=== PATIENT | male | born 1995 | race Caucasian/White ===

== ENCOUNTER 2021-03-04 17:32 | Emergency (ER) | payer MEDICAID, SELFPAY ==
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
[2021-03-04 17:54] VITALS: BP 167/77; PULSE 78; RESP 16; TEMP 37.1; O2SAT 98; BMI 30.2
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
== END 2021-03-04 19:45 | disposition home or self-care (01) ==
PROVIDERS: Emergency Provider Internal Medicine
DX: M54.2 Cervicalgia (principal); M62.838 Other muscle spasm; Z79.899 Other long term (current) drug therapy
CPT/HCPCS: 72040; 99283

== ENCOUNTER 2021-04-03 16:26 | Emergency (ER) | payer MEDICAID, SELFPAY ==
--- NOTE | 2021-04-03 | ECG_ITS ---
Test Reason : CP Blood Pressure : / mmHG Vent. Rate : 083 BPM Atrial Rate : 083 BPM P-R Int : 148 ms QRS Dur : 088 ms QT Int : 342 ms P-R-T Axes : 048 054 044 degrees QTc Int : 401 ms Normal sinus rhythm Normal ECG No previous ECGs available Referred By: Generic ED Physician Electronically Signed By:MARSHALL BARRERA
--- NOTE | ~2021-04-03 | XR_ITS ---
EXAMINATION: XR CHEST CLINICAL INFORMATION: Chest pain COMPARISON: None TECHNIQUE: Frontal view of the chest was obtained. FINDINGS: The lungs are well expanded. There is no focal consolidation, edema, or effusion. No pneumothorax. The cardiomediastinal silhouette is within normal limits. No acute osseous abnormality. XR/XR chest 1V IMPRESSION: Clear lungs.
[2021-04-03 16:54] VITALS: BP 139/77; PULSE 90; RESP 18; TEMP 36.9; O2SAT 97; BMI 30.8
--- NOTE | 2021-04-03 17:41 | ED_ITS ---
HPI - Chest Pain General Chief Complaint: Chest Pain Stated Complaint: nausea, chest pain Time Seen by Provider: 04/03/21 17:41 Source: patient Mode of arrival: ambulatory Limitations: no limitations History of Present Illness HPI narrative: 25 y/o male presenting with intermittent chest pains and palpitations over the last few months. The pains are sharp stabbing pains that last a few seconds to a minute. They are located in the epigastric area and left chest at times. They happen when he is sitting still and are worse with palpation. He reports intermittent palpitations at night when he is trying to sleep. He admits to being anxious. He denies SOB. MD complaint: chest pain Onset (ago): week(s) Timing of current episode: episodic Prior episodes: Yes Onset: during rest Pain location: left chest and epigastric Pain radiation: none Severity: moderate Pain scale (0-10): 5 Quality: sharp Relieving factors: nothing Exacerbating factors: palpation Associated symptoms: palpitations Treatment prior to arrival: none Risk Factors Coronary artery disease risk factors: none Thoracic aortic dissection risk factors: none Related Data Previous Rx's Medication Instructions Recorded cyclobenzaprine 10 mg PO TID PRN #10 tab 03/04/21 ibuprofen 600 mg PO Q8H PRN #10 tab 03/04/21 ibuprofen 600 mg PO Q8H PRN #15 tab 04/03/21 Allergies Allergy/AdvReac Type Severity Reaction Status Date / Time No Known Allergies Allergy Verified 04/03/21 16:53 Review of Systems Review of Systems: Constitutional: No Fever, No Chills ENT/Mouth: No sore throat, No Rhinorrhea, No Swallowing Difficulty Eyes: No Eye Pain, No Swelling, No Redness Cardiovascular: + Chest Pain, No SOB, No Orthopnea, No Edema Respiratory: No Cough, No Sputum, No Wheezing, No dyspnea Gastrointestinal: No Nausea, No Vomiting, No Diarrhea, No abdominal Pain Genitourinary: No Dysuria, No Urinary Frequency, No Hematuria Musculoskeletal: No joint pain, No Myalgias Skin: No Skin Lesions, No rash Neuro: No Weakness, No Numbness, No Dizziness, No Headache Psych: + Anxiety/Panic, No Depression Heme/Lymph: No Bruising, + Lymphadenopathy (right post auricular) Endocrine: No Polyuria, No Polydipsia PMFSH Past Medical History Attestation statement: The following information was validated with the patient. Medical History No active medical problems Social History Social History Alcohol intake: never Smoked in Last 30 Days: No Use of substances other than those prescribed or required for medical reasons: No Advance Directives: No Advance Directives Information Provided: No Physical Exam Vital Signs: Vital Signs: Last Vital Signs Temp 98.5 F 04/03/21 16:54 Pulse 90 04/03/21 16:54 Resp 18 04/03/21 16:54 BP 139/77 04/03/21 16:54 Pulse Ox 97 04/03/21 16:54 Body Mass Index 30.8 Appearance: Alert. Oriented X3. No acute distress. Eyes: Pupils equal, round and reactive to light. ENT: Pharynx normal. Neck: Normal inspection. Neck supple. CVS: Normal heart rate and rhythm. Pulses normal. Respiratory: No respiratory distress. Breath sounds normal. Mild anterior chest wall tenderness is subxiphoid area, no crepitus Abdomen: Soft and nontender. +BS x4 Skin: Skin warm and dry. Normal skin color. Normal skin turgor. No rashes. Extremities: No lower extremity edema. Neuro: Oriented X 3. No motor deficit. No sensory deficit. Course Course Course Narrative: 25 y/o male presenting with intermittent reproducible chest pain, palpitations in the setting of increased anxiety. VS and exam are unremar kable, chest pain is reproducible in the subxiphoid area. CXR, EKG and labs ordered. Reevaluation(s) Reevaluation #1: EKG normal. CXR normal. Lab workup is unremarkable. He ist stable for discharge home with outpatient follow up. NSAID PRN for pain and f/u PCP for management of anxiety. Patient and mom agree with plan. MDM - Chest Pain Medical Records Data Attestation: I reviewed the patient's medical records. Lab Data Attestation: I reviewed the patient's lab results. Result diagrams: 04/03/21 17:58 04/03/21 17:58 Labs: Lab Results 04/03/21 04/03/21 04/03/21 Range/Units 17:58 17:58 17:58 WBC 10.4 (4.8-10.8) X10*3/uL RBC 5.08 (4.60-5.80) X10*6/uL Hgb 14.2 (14.0-18.0) g/dl Hct 43.3 (42-52) % MCV 85.2 (80-98) fL MCH 28.0 (27.0-33.0) pg MCHC 32.8 (31.0-36.0) g/dl RDW 12.7 (11.0-16.0) % Plt Count 298 (160-400) X10*3/uL MPV 9.0 L (9.4-12.4) fL Immature Gran % (Auto) 0.4 (0.0-0.4) % Neut % (Auto) 59.0 (45-73) % Lymph % (Auto) 33.2 (20-40) % [place] % (Auto) 6.6 (2-11) % Eos % (Auto) 0.5 (0-4) % Baso % (Auto) 0.3 (0-2) % Lymph # (Auto) 3.5 (1.2-4.9) X10*3/uL [place] # (Auto) 0.7 (0.1-1.2) X10*3/uL Eos # (Auto) 0.1 (0.0-0.4) X10*3/uL Baso # (Auto) 0.0 (0.0-0.2) X10*3/uL Abs Immat Gran (auto) 0.04 H (0.00-0.03) X10*3/uL Absolute Neuts (auto) 6.2 (2.0-8.3) X10*3/uL Absolute Nucleated RBC 0.000 (0.0-0.012) X10*3/uL Nucleated RBC % (auto) 0.0 (0.0-0.2) /100WBC Sodium 141 (135-145) mmol/L Potassium 4.1 (3.3-5.1) mmol/L Chloride 106 (96-108) mmol/L Carbon Dioxide 27 (22-29) mmol/L Anion Gap 12 (12-20) BUN 11 (9-16) mg/dL Creatinine 1.06 (0.5-1.4) mg/dL Estim Creat Clear Calc 122.0 Estimated GFR > 60 Random Glucose 98 (60-115) mg/dL Calcium 9.6 (8.4-10.2) mg/dL Magnesium 2.1 (1.6-2.6) mg/dL Total Bilirubin 0.4 (0.0-1.0) mg/dL Direct Bilirubin 0.2 (0.0-0.5) mg/dL AST 30 (5-37) U/L ALT 61 H (0-40) U/L Alkaline Phosphatase 92 (39-117) U/L Troponin I High Sens < 3.5 (<3.5-35.0) ng/L Total Protein 8.1 H (6.5-8.0) g/dL Albumin 4.6 (3.5-5.0) g/dL TSH 1.13 (0.32-4.0) uIU/mL ECG Data ECG #1: Attestation: I personally reviewed and interpreted this ECG as follows: ECG interpretation date: 04/03/21 ECG interpretation time: 19:18 Interpretation: normal sinus rhythm, 83 bpm, normal AR interval, normal QTc, no ST segment elevations or depressions. Scores Heart Score History: -0- slightly suspicious ECG: -0- normal Age: -0- < or = 45 Risk factory: -0- no risk factors known Troponin: -0- < or = normal limit Score: 0 Risk: 1.7% Critical Care Time Critical Care Time Critical Care Time: No Discharge Plan Discharge Clinical Impression: Atypical chest pain, Anxiety Patient Disposition: Home, Self-Care Instructions: Costochondritis (ED), Anxiety (ED) Additional Instructions: Your workup today was unremarkable. Your pains and palpitations are most likely due to combination of anxiety and muscle pain. Recommend rest. No heavy lifting. Recommend prescribed Ibuprofen as directed as needed for pain. Follow up with your doctor this week. If you develop new or worsening symptoms call 911 or come back to the ER for further evaluation. Prescriptions: New ibuprofen 600 mg tablet 600 mg PO Q8H PRN (Reason: pain) Qty: 15 RF: 0 No Action ibuprofen 600 mg tablet 600 mg PO Q8H PRN (Reason: pain) Qty: 10 RF: 0 cyclobenzaprine 10 mg tablet 10 mg PO TID PRN (Reason: muscle spasm) Qty: 10 RF: 0 Referrals: [place],[facility] [Primary Care Provider] - 2 days
[2021-04-03 18:02] LABS: MANUAL DIFF FLAG NO
[2021-04-03 18:18] LABS: Basophils Percent Auto 0.3 % (0-2); Eosinophils Absolute Auto 0.1 X10*3/uL (0.0-0.4); Eosinophils Percent Auto 0.5 % (0-4); Hematocrit 43.3 % (42-52); Hemoglobin 14.2 g/dl (14.0-18.0); Imm Gran Abs Auto 0.04 X10*3/uL (0.00-0.03); Imm Gran Pct Auto 0.4 % (0.0-0.4); Lymphocytes Absolute Auto 3.5 X10*3/uL (1.2-4.9); Lymphocytes Percent Auto 33.2 % (20-40); Mean Corpuscular HGB Conc 32.8 g/dl (31.0-36.0); Mean Corpuscular Volume 85.2 fL (80-98); Monocytes Absolute Auto 0.7 X10*3/uL (0.1-1.2); Monocytes Percent Auto 6.6 % (2-11); Neutrophils Absolute Auto 6.2 X10*3/uL (2.0-8.3); Platelet Count 298 X10*3/uL (160-400); Red Blood Count 5.08 X10*6/uL (4.60-5.80); Red Cell Distribution Width 12.7 % (11.0-16.0); White Blood Count 10.4 X10*3/uL (4.8-10.8)
[2021-04-03 18:29] LABS: Alanine Aminotransferase 61 U/L (0-40); Albumin Level 4.6 g/dL (3.5-5.0); Alkaline Phosphatase 92 U/L (39-117); Anion Gap 12 (12-20); Aspartate Amino Transferase 30 U/L (5-37); Bilirubin Direct 0.2 mg/dL (0.0-0.5); Bilirubin Total 0.4 mg/dL (0.0-1.0); Blood Urea Nitrogen 11 mg/dL (9-16); Calcium 9.6 mg/dL (8.4-10.2); Carbon Dioxide 27 mmol/L (22-29); Chloride 106 mmol/L (96-108); Estimated Glomerular Filt Rate > 60; Glucose Random 98 mg/dL (60-115); Magnesium 2.1 mg/dL (1.6-2.6); Potassium 4.1 mmol/L (3.3-5.1); Sodium 141 mmol/L (135-145); Total Protein 8.1 g/dL (6.5-8.0)
[2021-04-03 18:31] LABS: Troponin-I High Sensitivity < 3.5 ng/L (<3.5-35.0)
[2021-04-03 18:54] LABS: TSH reflex Free T4 1.13 uIU/mL (0.32-4.0)
[2021-04-03 19:18] VITALS: BP 126/70; PULSE 78; RESP 20; O2SAT 99
== END 2021-04-03 19:28 | disposition home or self-care (01) ==
PROVIDERS: Physician Assistant; Emergency Provider Emergency Medicine
DX: R07.89 Other chest pain (principal); F41.9 Anxiety disorder, unspecified
CPT/HCPCS: 36415; 71045; 80048; 80076; 83735; 84443; 84484; 85025; 93005; 99283; 99284

== ENCOUNTER 2021-09-27 08:18 | Emergency (ER) | payer MEDICAID, SELFPAY ==
--- NOTE | 2021-09-27 08:42 | ED.GENADULT ---
HPI - General Adult General Chief complaint: Weakness Stated complaint: Nausea/ear ringing/vomiting Time Seen by Provider: 09/27/21 08:29 Source: patient Mode of arrival: ambulatory Limitations: no limitations History of Present Illness HPI narrative: vaccinated x 1 with J+J complaint: nausea, doesn't feel well Onset (ago): day(s) (3) Severity: mild Relieving factors: none Exacerbating factors: none Associated symptoms: denies other symptoms Treatments prior to arrival: none Related Data Previous Rx's Medication Instructions Recorded cyclobenzaprine 10 mg tablet 10 mg PO TID PRN #10 tab 03/04/21 ibuprofen 600 mg tablet 600 mg PO Q8H PRN #10 tab 03/04/21 ibuprofen 600 mg tablet 600 mg PO Q8H PRN #15 tab 04/03/21 ondansetron 4 mg disintegrating 4 mg PO Q8H PRN #20 tab 09/27/21 tablet Allergies Allergy/AdvReac Type Severity Reaction Status Date / Time No Known Allergies Allergy Verified 09/27/21 09:23 Review of Systems Review of Systems: Constitutional : no Fever, no Chills, pos fatigue, positive Malaise ENT/Mouth : no sore throat, no runny nose Eyes: No Discharge Cardiovascular : No Chest Pain, No SOB Respiratory : No Cough, No Sputum Gastrointestinal : pos Nausea, No Vomiting, pos Diarrhea Genitourinary : No Dysuria, No Urinary Frequency Musculoskeletal : positive Myalgia Skin : No rash Neuro : No Headache, pos weakness PMFSH Past Medical History Attestation statement: The following information was validated with the patient. Medical History No active medical problems Social History Social History Alcohol intake: never Patient Tobacco Use Status: Never used Tobacco Advance Directives: No Advance Directives Information Provided: Yes Physical Exam Vital Signs: Vital Signs: Last Vital Signs Temp 99.6 F 09/27/21 08:51 Pulse 89 09/27/21 08:51 Resp 18 09/27/21 08:51 BP 129/79 09/27/21 08:51 Pulse Ox 98 09/27/21 08:51 BMI result Body Mass Index 31.1 Appearance: Alert. Oriented X3. No acute distress. Eyes: Pupils equal, round and reactive to light. ENT: Pharynx normal. normal TMs, MM no signs of dehydration Neck: Normal inspection. Neck supple. CVS: Normal heart rate and rhythm. Pulses normal. Respiratory: No respiratory distress. Breath sounds normal. Abdomen: Soft and nontender. Skin: Skin warm and dry. Normal skin color. Normal skin turgor. Extremities: No lower extremity edema. No calf ttp Neuro: Oriented X 3. No motor deficit. No sensory deficit. Course Course Course Narrative: VS stable not toxic can call with result at home Medical Decision Making [facility] Narrative Medical decision making narrative: 25 yo male vaccinated with J+J here with c/o not feeling well and nausea but can eat and drink - at this time not toxic, no signs of dehydration, ODT zofran, abdomen is benign, COVID swab Lab Data Labs: Lab Results 09/27/21 Range/Units 08:57 COVID-19 ([facility]) Negative (Negative) COVID-19 Clin Com See Note Discharge Plan Discharge Clinical Impression: Acute viral syndrome Patient Disposition: Home, Self-Care Instructions: Viral Syndrome (ED) Additional Instructions: return to ED for any worsening symptoms or concerns wear a mask quarantine your initial rapid test was negative for COVID will call you with PCR testing for flu and COVID today with your results Prescriptions: New ondansetron 4 mg tablet,disintegrating 4 mg PO Q8H PRN (Reason: nausea and vomiting) Qty: 20 RF: 0 No Action ibuprofen 600 mg tablet 600 mg PO Q8H PRN (Reason: pain) Qty: 10 RF: 0 cyclobenzaprine 10 mg tablet 10 mg PO TID PRN (Reason: muscle spasm) Qty: 10 RF: 0 ibuprofen 600 mg tablet 600 mg PO Q8H PRN (Reason: pain) Qty: 15 RF: 0
[2021-09-27 08:51] VITALS: BP 129/79; PULSE 89; RESP 18; TEMP 37.6; O2SAT 98; BMI 31.1
[2021-09-27] MEDS: Ondansetron ODT 4 MG TAB.RAPDIS TRANSLINGU (08:56)
--- NOTE | 2021-09-27 08:59 | PC.NURSE ---
Pt received: Pt Aox4 and c/o weakness with nausea and diarrhea for the past week. Heart sounds normal and lungs clear. Pt abd round and nontender.
[2021-09-27 09:25] LABS: COVID-19 Test Negative (Negative); IDNOW Serial# 9DD0AD1C
[2021-09-27 10:20] LABS: Influenza A PCR NEGATIVE (Negative); Influenza B PCR NEGATIVE (Negative); Resp Syncy Virus RNA Qual PCR NEGATIVE (Negative); SARS COV2 PCR INHOUSE NEGATIVE (Negative)
== END 2021-09-27 10:00 | disposition home or self-care (01) ==
PROVIDERS: Emergency Provider Emergency Medicine
DX: B34.9 Viral infection, unspecified (principal); Z20.822 Contact with and (suspected) exposure to COVID-19; R11.0 Nausea
CPT/HCPCS: 0241U; 36415; 87635; 99283

== ENCOUNTER 2021-10-18 09:54 | Outpatient (REF) | payer MEDICAID, SELFPAY ==
[2021-10-18 10:17] LABS: Binax Internal Control QC Valid; Binax Now Covid-19 Ag Negative (Negative)
== END 2021-10-18 09:55 | disposition home or self-care (01) ==
LOC: HO.LAB 09:54
PROVIDERS: Visit Provider Internal Medicine
DX: Z20.822 Contact with and (suspected) exposure to COVID-19 (principal)
CPT/HCPCS: C9803

== ENCOUNTER 2023-03-03 12:30 | Emergency (ER) | payer OTHER, MEDICAID, SELFPAY ==
--- NOTE | 2023-03-03 12:49 | ED_ITS ---
HPI - Extremity Injury (Upper) General Chief Complaint: Wound/Laceration Stated Complaint: l hand laceration at work Time Seen by Provider: 03/03/23 13:35 Source: patient, RN notes reviewed and old records reviewed Mode of arrival: ambulatory History of Present Illness HPI narrative: 27-year-old male with no significant past medical history presents to the ED complaining of laceration to left hand s/p using metal at work around 10:00AM. Tetanus out of date. Denies injury to other area, numbness, tingling, weakness, drainage MD complaint: injury to: left Related Data Previous Rx's Medication Instructions Recorded cyclobenzaprine 10 mg tablet 10 mg PO TID PRN muscle spasm #10 03/04/21 tabs ibuprofen 600 mg tablet 600 mg PO Q8H PRN pain #10 tabs 03/04/21 ibuprofen 600 mg tablet 600 mg PO Q8H PRN pain #15 tabs 04/03/21 ondansetron 4 mg disintegrating 4 mg PO Q8H PRN nausea and 09/27/21 tablet vomiting #20 tabs Allergies Allergy/AdvReac Type Severity Reaction Status Date / Time No Known Allergies Allergy Verified 03/03/23 12:54 Review of Systems Review of Systems: Constitutional: No Fever, No Chills ENT/Mouth: No Ear Pain, No Nasal Congestion, No sore throat, No Rhinorrhea, No Swallowing Difficulty Cardiovascular: No Chest Pain, No SOB Respiratory: No Cough, No Sputum, No Wheezing Gastrointestinal: No Nausea, No Vomiting, No Diarrhea, No Constipation, No Abdominal pain Musculoskeletal: No joint pain, No Myalgias, No Joint Swelling Skin: + Skin Lesions, No rash Neuro: No Weakness, No Numbness, No Paresthesias Yes all other systems are reviewed and are negative Constitutional: Constitutional: Reports as per [facility] Past Medical History Attestation statement: The following information was validated with the patient. Source: old records reviewed Medical History No active medical problems Social History Social History Alcohol intake: never Patient Tobacco Use Status: Never used Tobacco Advance Directives: No Advance Directives Information Provided: Yes Physical Exam Vital Signs: Vital Signs: Last Vital Signs Temp 97.8 F 03/03/23 12:50 Pulse 83 03/03/23 12:50 Resp 18 03/03/23 12:50 BP 156/87 H 03/03/23 12:50 Pulse Ox 99 03/03/23 12:50 O2 Del Method Room Air 03/03/23 12:50 BMI result Body Mass Index 28.9 Const: General: cooperative, healthy appearing and no acute distress Orientation/consciousness: patient oriented x3 Limitations: no limitations HEENT: Head: Yes normal to inspection and Yes atraumatic Ears: hearing grossly normal bilaterally General nose exam: Normal external nose present Face and sinus: Yes normal facial exam Eyes: General: appearance normal, both eyes and all related structures EOM: EOMs intact bilaterally Neck: Neck: Yes normal visual inspection and Yes no meningeal signs Resp: Effort & Inspection: normal respiratory effort and no respiratory distress Cardio: Rate: regular rate Peripheral pulses: radial pulses present and ulnar radial pulses present Skin: Other: 1 cm superficial laceration noted just proximal to left 2nd digit MCP palmar/lateral aspect Rashes: no rashes Neuro: General: patient oriented x3, tone normal and no meningeal signs Gait exam (Neuro): Normal gait present Extrem: Other: FROM left hand and digits intact. Finger to thumb opposition intact. Sensation intact to light touch. 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 Normal ROM of the digit. Doubt tendon injury. Seems superficial with minor oozing. Can likely be repaired with skin glue and steri-strips. Needs tdap. Medications Administered Discontinued Medications Generic Name Dose Route Start Last Admin Trade Name Freq PRN Reason Stop Dose Admin Diphtheria/Tetanus/Acell Pertussis 0.5 ml 03/03/23 12:52 03/03/23 14:22 Diphth,Pertus(Acell),Tet Adult 0.5 Ml Syringe IM 03/03/23 12:53 0.5 ml .ONCE ONE Administration Medical Decision Making Medical Decision Making [facility] Narrative: 27-year-old male with no significant past medical history presents to the ED complaining of laceration to left hand s/p using metal at work around 10:00AM. On exam vital signs stable, NAD, nontoxic appearing, physical exam as above with superficial laceration noted to left hand. Tetanus out of date. Wound will require Dermabond repair Will update tetanus Please refer to course for remaining clinical decision making, interpretation of labs/imaging results, and discussions with consultants and/or family members. Results discussed with patient including worrisome signs and symptoms and strict return precautions, and when to return to the emergency department. They verbalized understanding and feel safe for discharge at this time. Differential Diagnosis Differential Diagnoses: The differential diagnosis associated with the presentation includes As above External Record Review External record reviewed: Inpatient record, Office record, Outpatient record, Prior outpatient labs, Prior outpatient radiology, Primary care record and Outside ED record Tests considered The following testing was considered but not selected: As above Procedures Laceration Laceration 1: Site: hand Side (If applicable): left Size (cm): 1 Description: linear Depth: simple, single layer Pre-repair: wound explored, irrigated extensively and deep structures intact Size (cm): other (dermabond) Discharge Plan Discharge Clinical Impression: Hand laceration Patient Disposition: Home, Self-Care Prescriptions: No Action ibuprofen 600 mg tablet 600 mg PO Q8H PRN (Reason: pain) Qty: 10 0RF cyclobenzaprine 10 mg tablet 10 mg PO TID PRN (Reason: muscle spasm) Qty: 10 0RF ibuprofen 600 mg tablet 600 mg PO Q8H PRN (Reason: pain) Qty: 15 0RF ondansetron 4 mg tablet,disintegrating 4 mg PO Q8H PRN (Reason: nausea and vomiting) Qty: 20 0RF
[2023-03-03 12:50] VITALS: BP 156/87; PULSE 83; RESP 18; TEMP 36.6; O2SAT 99; BMI 28.9
[2023-03-03] MEDS: Diphth,Pertus(ACell),Tet Adult 0.5 ML SYRINGE IM (14:22)
[2023-03-03 14:38] VITALS: BP 125/63; PULSE 65; RESP 16; O2SAT 100
== END 2023-03-03 14:42 | disposition home or self-care (01) ==
PROVIDERS: Emergency Provider Emergency Medicine
DX: S61.412A Laceration without foreign body of left hand, initial encounter (principal); W26.8XXA Contact with other sharp object(s), not elsewhere classified, initial encounter; Y93.89 Activity, other specified; Y92.59 Other trade areas as the place of occurrence of the external cause; Y99.0 Civilian activity done for income or pay
CPT/HCPCS: 12001; 90471; 90715; 99284

== ENCOUNTER 2023-09-01 14:16 | Emergency (ER) | payer OTHER, MEDICAID, SELFPAY ==
[2023-09-01 14:27] VITALS: BP 140/87; PULSE 75; RESP 18; TEMP 36.9; O2SAT 100; BMI 32.2
--- NOTE | 2023-09-01 14:27 | ED.GENADULT ---
HPI - General Adult General Chief complaint: Headache Stated complaint: Headache Related Data Previous Rx's Medication Instructions Recorded cyclobenzaprine 10 mg tablet 10 mg PO TID PRN muscle spasm #10 03/04/21 tabs ibuprofen 600 mg tablet 600 mg PO Q8H PRN pain #10 tabs 03/04/21 ibuprofen 600 mg tablet 600 mg PO Q8H PRN pain #15 tabs 04/03/21 ondansetron 4 mg disintegrating 4 mg PO Q8H PRN nausea and 09/27/21 tablet vomiting #20 tabs Allergies Allergy/AdvReac Type Severity Reaction Status Date / Time No Known Allergies Allergy Verified 03/03/23 12:54 PMFSH Past Medical History Medical History No active medical problems Social History Social History Alcohol intake: never Patient Tobacco Use Status: Never used Tobacco Advance Directives: No Advance Directives Information Provided: No Physical Exam ED Vital Signs: BMI result Body Mass Index 32.2 Course Course Course Narrative: This is a rapid medical exam: Additional HPI, ROS, PE not included below will be deferred to primary provider. Patient is a 27-year-old male presenting to the ED with complaint of headache every day for the past 1-2 months. Rates at 5/10, states it's not really bad it's just annoying. Gradual onset. Denies fever, nausea, vomiting. Has not taken any OTC medications for his headache. Denies dizziness. Discharge Plan Discharge Clinical Impression: Headache Patient Disposition: Left W/O Completing Treatment Prescriptions: No Action ibuprofen 600 mg tablet 600 mg PO Q8H PRN (Reason: pain) Qty: 10 0RF cyclobenzaprine 10 mg tablet 10 mg PO TID PRN (Reason: muscle spasm) Qty: 10 0RF ibuprofen 600 mg tablet 600 mg PO Q8H PRN (Reason: pain) Qty: 15 0RF ondansetron 4 mg tablet,disintegrating 4 mg PO Q8H PRN (Reason: nausea and vomiting) Qty: 20 0RF Discharge Date/Time: 09/01/23 18:11
== END 2023-09-01 18:11 | disposition left against medical advice (07) ==
LOC: HO.ED 18:05
PROVIDERS: Emergency Provider Emergency Medicine
DX: R51.9 Headache, unspecified (principal)
CPT/HCPCS: 99281

== ENCOUNTER 2024-04-26 10:06 | Emergency (ER) | payer OTHER, SELFPAY ==
[2024-04-26 10:10] VITALS: BP 134/78; PULSE 75; RESP 16; TEMP 37; O2SAT 98; BMI 30.3
--- NOTE | 2024-04-26 12:16 | ED.SKABFB ---
HPI - Skin/Abscess/Foreign Bdy General Chief complaint: Skin/Abscess/Foreign Body Stated complaint: Rash 2 months Time Seen by Provider: 04/26/24 11:29 Source: patient, family and RN notes reviewed Mode of arrival: ambulatory Limitations: no limitations History of Present Illness ED Provider: Ayse Mejia PA-C HPI narrative: This is a 28-year-old male, with no known medical problems, who presents emergency department with complaints of itchy rash x2 months. Patient states that he has noticed intermittent rashes that he gets on his lower extremities, that are itchy in nature. He states that he previously had a history of eczema and symptoms feel somewhat similar. He denies any new soaps, lotions, detergents. He does not remember being exposed to any chemicals or plan somewhat of caused his symptoms. He applied cortisone cream to the area yesterday which provided him with some relief. He states that the rash is in his bilateral lower extremities, as well as his groin. He states that the rash is not bad in his groin . He denies any fevers or chills. No other complaints or concerns at this time. MD complaint: rash Onset (ago): month(s) Location: LLE and RLE Quality: pruritic Relieving factors: medication Exacerbating factors: none Context: none Associated symptoms: denies other symptoms Treatments prior to arrival: none Related Data Previous Rx's ?Medication ?Instructions ?Recorded cyclobenzaprine 10 mg tablet 10 mg PO TID PRN muscle spasm #10 03/04/21 tabs ibuprofen 600 mg tablet 600 mg PO Q8H PRN pain #10 tabs 03/04/21 ibuprofen 600 mg tablet 600 mg PO Q8H PRN pain #15 tabs 04/03/21 ondansetron 4 mg disintegrating 4 mg PO Q8H PRN nausea and 09/27/21 tablet vomiting #20 tabs prednisone 20 mg tablet 40 mg (2 x 20 mg) PO DAILY 5 days 04/26/24 #10 tabs Allergies Allergy/AdvReac Type Severity Reaction Status Date / Time No Known Allergies Allergy Verified 04/26/24 10:11 Review of Systems Review of Systems: Yes all other systems are reviewed and are negative Constitutional: Constitutional: Reports as per [facility] Past Medical History Medical History No active medical problems Social History Social History Alcohol intake: never Patient Tobacco Use Status: Never used Tobacco Advance Directives: No Physical Exam Vital Signs: Vital Signs: Last Vital Signs Temp 98.6 F 04/26/24 10:10 Pulse 75 04/26/24 10:10 Resp 16 04/26/24 10:10 BP 134/78 04/26/24 10:10 Pulse Ox 98 04/26/24 10:10 O2 Del Method Room Air 04/26/24 10:10 BMI result Body Mass Index 30.3 Const: General: cooperative, comfortable and no acute distress Orientation/consciousness: patient oriented x3 Limitations: no limitations HEENT: Head: Yes normal to inspection, Yes normocephalic and Yes atraumatic Ears: hearing grossly normal bilaterally General nose exam: Normal external nose present Face and sinus: Yes normal facial exam Mouth: Normal oral and palatal mucosa present, oropharynx normal and moist mucous membranes Throat: Yes posterior oropharynx normal Eyes: General: appearance normal, both eyes and all related structures Eyelids: Yes eyelids normal Conjunctivae: conjunctivae normal Sclerae: sclerae normal Pupils: Equal, round and reactive pupils present EOM: EOMs intact bilaterally Neck: Neck: Yes normal visual inspection, Yes full ROM and Yes no lymphadenopathy Lymphatic: no lymphadenopathy noted Chest: Chest palpation & inspection: normal inspection of the chest Resp: Effort & Inspection: normal respiratory effort and able to speak in complete sentences Auscultation: clear to auscultation bilaterally, no crackles, no rales, no rhonchi and no wheezes Cardio: Rate: regular rate Rhythm: regular rhythm Heart sounds: S1 normal heart sound present and S2 normal heart sound present GI: Inspection: Yes normal to inspection : Other: Deferred examination Skin: Other: Bilateral shins with mildly erythematous, dry scaly plaques, no surrounding erythema or warmth. No drainage. No fluctuance or induration. General skin exam: no rashes or lesions noted Trauma: no lacerations or abrasions Wounds: no wounds Neuro: General: patient oriented x3 and moves all extremities Cranial nerves: Yes Equal, round and reactive pupils present Extrem: General: Yes normal to inspection Right upper extremity: normal to inspection Left upper extremity: normal to inspection Right lower extremity: normal to inspection Left lower extremity: normal to inspection Medical Decision Making Medical Decision Making MDM Narrative: This is a 28-year-old male who presents emergency department with complaints of rash to bilateral lower extremities. He states that he also has a rash in his groin however refuses to have a examination performed today. He has been applying cortisone cream which provided him with some relief. He denies any fevers. Denies any other sick contacts with similar symptoms. Rash spares the hands and palms. Denies any fevers or chills. Differential diagnoses include contact dermatitis, allergic dermatitis, atopic dermatitis, less likely cellulitis. Will treat with course of prednisone. He was also given referral to [facility] caretaker for further workup. Given strict return precautions he understands and agrees with plan. Patient stable for discharge. Differential Diagnosis Differential Diagnoses: The differential diagnosis associated with the presentation includes See above Discharge Plan Discharge Clinical Impression: Rash Patient Disposition: Home, Self-Care Instructions: Acute Rash (ED) Additional Instructions: You were seen in the emergency department due to a rash. Your physical exam is concerning for possible eczema, please follow-up with the children's zoo caretaker, call to make an appointment. I am prescribing you prednisone, take this as prescribed. Monitor the areas, if any new or worsening symptoms occur including but not limited to fevers, chills, increased redness, swelling, please return for re-evaluation. You may also take Benadryl for itching. Please be advised that this can cause drowsiness, do not drink alcohol or drive while taking this medication. Prescriptions: New prednisone 20 mg tablet 40 mg PO DAILY 5 Days Qty: 10 0RF No Action ibuprofen 600 mg tablet 600 mg PO Q8H PRN (Reason: pain) Qty: 10 0RF cyclobenzaprine 10 mg tablet 10 mg PO TID PRN (Reason: muscle spasm) Qty: 10 0RF ibuprofen 600 mg tablet 600 mg PO Q8H PRN (Reason: pain) Qty: 15 0RF ondansetron 4 mg tablet,disintegrating 4 mg PO Q8H PRN (Reason: nausea and vomiting) Qty: 20 0RF Referrals: Patsy Monge MD [Physician] - Stand Alone Forms: Work/School Release Print Language: Anguillan
[2024-04-26 12:22] VITALS: BP 134/78; PULSE 75; RESP 18; TEMP 37; O2SAT 98
== END 2024-04-26 12:23 | disposition home or self-care (01) ==
PROVIDERS: Emergency Provider Emergency Medicine
DX: R21 Rash and other nonspecific skin eruption (principal)
CPT/HCPCS: 99282; 99283

== ENCOUNTER 2024-11-16 07:40 | Emergency (ER) | payer OTHER, SELFPAY ==
--- NOTE | ~2024-11-16 | XR_ITS ---
EXAMINATION: XR CHEST CLINICAL INFORMATION: cough COMPARISON: 04/03/2021 TECHNIQUE: 2 views of the chest were obtained. FINDINGS: The cardiac, hilar, and mediastinal contours are normal. Lungs demonstrate a chronic curvilinear opacity in the right lateral midlung. This is unchanged. Lungs otherwise clear. There is no pneumothorax or pleural effusion. There is no focal osseous or soft tissue abnormality. XR/XR chest 2V IMPRESSION: No active pulmonary disease. Electronically signed by: Tom Brasher MD 11/16/2024 08:27 AM [facility]
[2024-11-16 07:58] VITALS: BP 108/66; PULSE 93; RESP 16; TEMP 37.4; O2SAT 98; BMI 29.8
[2024-11-16 10:07] LABS: Influenza A PCR POSITIVE (Negative); Influenza B PCR NEGATIVE (Negative); Resp Syncy Virus RNA Qual PCR NEGATIVE (Negative); SARS COV2 PCR INHOUSE NEGATIVE (Negative)
--- NOTE | 2024-11-16 10:20 | ED_ITS ---
HPI - URI/Sore Throat General Chief Complaint: Upper Respiratory Symptoms Stated Complaint: Fever, nausea, headache Time Seen by Provider: 11/16/24 10:11 Source: patient Mode of arrival: ambulatory Limitations: no limitations History of Present Illness ED Provider: MARIANNE SIDDIQUI PA-C HPI Narrative: 29 year old male with no significant pmhx presents to the ED today for evaluation of subjective fevers, dry cough, nausea, vomiting, myalgias and nasal congestion x4 days. Last episode of vomiting yesterday. Tolerating PO intake today. No known sick contacts. He has been taking Tylenol at home, last dose yesterday. He did not get his flu shot this year. Vaccinations otherwise UTD. Denies sore throat, chest pain, sob, wheezing. Related Data Previous Rx's ?Medication ?Instructions ?Recorded cyclobenzaprine 10 mg tablet 10 mg PO TID PRN muscle spasm #10 03/04/21 tabs ibuprofen 600 mg tablet 600 mg PO Q8H PRN pain #10 tabs 03/04/21 ibuprofen 600 mg tablet 600 mg PO Q8H PRN pain #15 tabs 04/03/21 ondansetron 4 mg disintegrating 4 mg PO Q8H PRN nausea and 09/27/21 tablet vomiting #20 tabs prednisone 20 mg tablet 40 mg (2 x 20 mg) PO DAILY 5 days 04/26/24 #10 tabs benzonatate 100 mg capsule 100 mg PO BID PRN cough #20 caps 11/16/24 ondansetron 4 mg disintegrating 4 mg PO DAILY PRN nausea and 11/16/24 tablet vomiting 5 days #7 tabs Allergies Allergy/AdvReac Type Severity Reaction Status Date / Time No Known Allergies Allergy Verified 11/16/24 08:02 Review of Systems Review of Systems: Yes all other systems are reviewed and are negative PMFSH Past Medical History Attestation statement: The following information was validated with the patient. Source: old records reviewed and nursing notes reviewed Medical History No active medical problems Social History Social History Alcohol intake: never Patient Tobacco Use Status: Never used Tobacco Advance Directives: No Advance Directives Information Provided: No Physical Exam Vital Signs: Vital Signs: Last Vital Signs Temp 99.3 F 11/16/24 10:34 Pulse 93 11/16/24 10:34 Resp 16 11/16/24 10:34 BP 108/66 11/16/24 10:34 Pulse Ox 98 11/16/24 10:34 O2 Del Method Room Air 11/16/24 10:34 BMI result Body Mass Index 29.8 vital signs stable General: Well appearing, in no acute distress. Skin: Warm, dry, intact. No rashes or lesions. Head: Normocephalic, atraumatic. EENT: Hearing is intact b/l. Conjunctiva clear. PERRLA. EOM intact. Moist mucous membranes.?posterior oropharynx wnl. bilateral EACs and TMs wnl. Neck: Supple without LAD Cardiac: Chest wall symmetric. RRR. Lungs: Normal respiratory effort without accessory muscle use. bronchospastic cough. CTA bilaterally. No rales, rhonchi, or wheezes.? Abdomen: Soft, non-tender, non-distended. No rebound tenderness or guarding. Positive BS x4. Ext: Upper and lower extremities atraumatic, without tenderness, deformity, swelling or erythema Neuro: AOx3. Normal speech. Ambulating with steady gait. Psych: Appropriate mood and affect. Responds appropriately to questions. Course Course Course Narrative: Patient tested positive for influenza A. Negative for COVID, RSV. Chest x-ray does not demonstrate pneumonia. Educated on symptomatic treatment. Will send Arsh and Ross Llanos to pharmacy for symptoms. Patient has remained stable throughout ED visit today. Discussed worrisome signs and symptoms and when to return to the ED. All questions answered at this time. Patient is agreeable with disposition and stable for discharge. Medical Decision Making Medical Decision Making [facility] Narrative: 29 year old male with no significant pmhx presents to the ED today for evaluation of subjective fevers, dry cough, nausea, vomiting, myalgias and nasal congestion x4 days. vital signs stable. afebrile. not hypoxic. he is nontoxic appearing and in NAD. exam is benign. Differential diagnosis includes viral syndrome, bronchitis, pneumonia. unlikely anemia, electrolyte abnormality, dehydration. Plan for viral swabs, cxr, re-evaluation. Differential Diagnosis Differential Diagnoses: The differential diagnosis associated with the presentation includes as above. Admission/Observation not indicated. Lab Data [facility] Lab Attestation statement: I reviewed the patient's lab results. as above Labs: Lab Results 11/16/24 Range/Units 08:34 Influenza Type A (PCR) POSITIVE A (Negative) Influenza Type B (PCR) NEGATIVE (Negative) RSV RNA Qual (PCR) NEGATIVE (Negative) SARS-CoV-2 RNA (RT-PCR) NEGATIVE (Negative) Independent Interpretation I performed an independent interpretation of an: Plain X-Ray Interpretation: CXR without focal consolidaiton or infiltrate Radiology Impression Discussion of test interpretation with radiology: I have reviewed the radiologist's reading. Radiologist Impression: Procedure(s): XR chest 2V Accession Number(s): [id number] cc: Generic ED Physician; Physician,None ~ EXAMINATION: XR CHEST CLINICAL INFORMATION: cough COMPARISON: 04/03/2021 TECHNIQUE: 2 views of the chest were obtained. FINDINGS: The cardiac, hilar, and mediastinal contours are normal. Lungs demonstrate a chronic curvilinear opacity in the right lateral midlung. This is unchanged. Lungs otherwise clear. There is no pneumothorax or pleural effusion. There is no focal osseous or soft tissue abnormality. XR/XR chest 2V IMPRESSION: No active pulmonary disease. Electronically signed by: Tom Brasher MD 11/16/2024 08:27 AM [facility] [place] Review External record reviewed: Inpatient record Prescription Management I considered prescription management with: Other (Ross Llanos, ) Discharge Plan Discharge Clinical Impression: Influenza A Patient Disposition: Home, Self-Care Instructions: Influenza (ED) Additional Instructions: You tested positive for influenza A. Your chest x-ray does not show pneumonia. Treatment for the flu is symptomatic. Continue Tylenol and Motrin at home as needed for fevers or body aches. I have sent Zofran to your pharmacy for nausea/vomiting. Ross Llanos have been sent to your pharmacy for your cough. Follow up with your PCP as needed. Return with any new or worsening symptoms. In the case of an emergency call 911. Prescriptions: New benzonatate 100 mg capsule 100 mg PO BID PRN (Reason: cough) Qty: 20 0RF ondansetron 4 mg tablet,disintegrating 4 mg PO DAILY PRN (Reason: nausea and vomiting) 5 Days Qty: 7 0RF No Action ibuprofen 600 mg tablet 600 mg PO Q8H PRN (Reason: pain) Qty: 10 0RF cyclobenzaprine 10 mg tablet 10 mg PO TID PRN (Reason: muscle spasm) Qty: 10 0RF ibuprofen 600 mg tablet 600 mg PO Q8H PRN (Reason: pain) Qty: 15 0RF ondansetron 4 mg tablet,disintegrating 4 mg PO Q8H PRN (Reason: nausea and vomiting) Qty: 20 0RF prednisone 20 mg tablet 40 mg PO DAILY 5 Days Qty: 10 0RF Stand Alone Forms: Work/School Release Interventions: ED Discharge Assessment Last Done: 11/16/24 10:34 Discharge Date/Time: 11/16/24 10:45 Print Language: Mongolian
[2024-11-16 10:34] VITALS: BP 108/66; PULSE 93; RESP 16; TEMP 37.4; O2SAT 98
--- OUTSIDE RECORDS SUMMARY | 2024-11-16 11:12 | XMS_ITS | Clinical Summary ---
Author Organization [employer] Address [address] [place] [address] Care Team Providers Care Machine Adjuster Leader Name Role Phone Monique Patel Primary Care Provider [phone] Social History Tobacco Use Types Packs/Day Years Used Date Smoking Tobacco: Never Assessed Sex and Gender Information Value Date Recorded Sex Assigned at Male 07/28/2022 10:14 AM EDT Legal Sex Male 10:14 AM EDT Gender Identity Male 07/28/2022 10:14 AM EDT Sexual Orientation Straight 07/28/2022 10 :14 AM EDT Last Filed Vital Signs Vital Sign Reading Time Taken Comments Blood Pressure 130/82 02/28/2021 12:06 AM EDT Pulse 80 02/28/2021 12:06 AM EDT Temperature - - Respiratory Rate - - Oxygen Saturation - - Inhaled Oxygen Concentration - - Weight 94 kg (207 lb 3.2 oz) 02/28/2021 12:06 AM EDT Height 173.1 cm (5' 8.15 ) 02/28/2021 12:06 AM E DT Body Mass Index 31.37 02/28/2021 12:06 AM EDT Plan of Treatment Health Maintenance Due Date Last Done Comments Depression Screening 1996 HIV Screening 1996 SDOH Screening 1996 Alcohol/Substance Use Screening 2008 Tobacco Screening 2008 Family Planning (PISQ) 2011 Hepatitis C Screening 2014 COVID-19 Vaccine ( season) 2024 12/06/2021, 02/28/2021 Influenza Vaccine (#1) 2024 , 07/19/2018, 10/10/2015, Additional history exists DTaP/Tdap/Td Vaccines (8 - Td or Tdap) 02/28/2031 02/28/2021, 01/17/2009, 12/24/2001, Additional history exists Zoster Vaccines (1 of 2) 2046 RSV Patients and Patients Aged 60 years or older (1 - 1-dose 75+ series) 2071 Hepatitis B Vaccines Completed 08/21/1997, 1996, 1996 HIB Vaccines Completed 03/19/1998, 07/30, 03/27/1997, Additional history exists IPV Vaccines Completed 12/24/2001, 07/30, 03/27/1997, Additional history exists HPV Vaccines Completed 10/10/2015, 04/29, 02/06/2009 Hepatitis A Vaccines Completed 10/10/2015, 05/24/20 14 Meningococcal Vaccine Completed 10/10/2015, 009 Pneumococcal Vaccine: Pediatrics (0 to 5 Years) and At-Risk Patients (6 to 49) Years) Aged Out No longer eligible based on patient's age to complete this topic RSV under 20 months Aged Out No longe r eligible based on patient's age to complete this topic Rotavirus Vaccines Aged Out No longer eligible based on patient's age to complete this topic Insurance [facility] [employer] Care Teams Machine Adjuster Leader Relationship Specialty Start Date End Date Monique Patel ANP [address] [place] [id number] PCP - General Family Medicine 08/13/20
--- OUTSIDE RECORDS SUMMARY | 2024-11-16 11:12 | XMS_ITS | Encounter Summary ---
Author Organization [employer] Address [address] [facility] [address] [place] [address] Care Team Providers Care Air Defense Artillery Officer Name Role Phone Monique Patel Primary Care Provider [phone] Encounter Details Date Type Department Care Team (Latest Contact Info) Description 12/13/2019 Abstract [facility] CONVERSIONS Dental, Provider, DDS Social History Tobacco Use Types Packs/Day Years Used Date Smoking Tobacco: Never Assessed Sex and Gender Information Value Date Recorded Sex Assigned at Male 07/28/2022 10:14 AM EDT Legal Sex Male 10:14 AM EDT Gender Identity Male 07/28/2022 10:14 AM EDT Sexual Orientation Straight 07/28/2022 10 :14 AM EDT documented as of this encounter Plan of Treatment Not on file documented as of this encounter Visit Diagnoses Not on filedocumented in this encounter Care Teams Air Defense Artillery Officer Relationship Specialty Start Date End Date Monique Patel ANP [address] [place] [id number] PCP - General Family Medicine 08/13/20 documented as of this encounter
--- OUTSIDE RECORDS SUMMARY | 2024-11-16 11:12 | XMS_ITS | Clinical Summary ---
Author Organization [facility] Address [address] [place] [id number] Care Team Providers Care Numberer And Wirer Name Role Phone Pcp, No Primary Care Provider Unavailabl e Allergies No known active allergies Medications No known medications Social History Tobacco Use Types Packs/Day Years Used Date Smoking Tobacco: Never Assessed Sex and Gender Information Value Date Recorded Sex Assigned at Male 05/22/2024 3:21 PM EDT Gender Identity Male 05/22/2024 3:21 PM EDT Sexual Orientation Heterosexual (straight) 05/22 3:21 PM EDT Last Filed Vital Signs Vital Sign Reading Time Taken Comments Blood Pressure 131/86 05/22/2024 2:57 PM EDT Pulse 84 05/22/2024 2:57 PM EDT Temperature 36.5 ??C (97.7 ??F) 05/22/2024 2:57 PM ED T Respiratory Rate 16 05/22/2024 2:57 PM EDT Oxygen Saturation 96% 05/22/2024 2:57 PM EDT Inhaled Oxygen Concentration - - Weight - - Height - - Body Mass Index - - Plan of Treatment Health Maintenance Due Date Last Done Comments Hepatitis C Virus Screening 1996 DTaP/Tdap/Td Vaccines (1 - Tdap) 2015 Hepatitis B Vaccines (1 of 3 - 19+ 3-dose series) 2015 Influenza Vaccine 04/28/2024 COVID-19 Vaccine (2023-2 5 season) 2024 HIV Screening Completed 05/23/2024 HPV Vaccines Aged Out No longer eligi ble based on patient's age to complete this topic Pneumococcal Vaccine: Pediat anamaria (0-5 Years) and At-Risk Patients (6 to 49 Years) Aged Out No longer eligible b ased on patient's age to complete this topic Procedures Procedure Name Priority Date/Time Associated Diagnosis Comments HIV 1/2 AG/AB CMIA REFLEX TO CONFIRMATION STAT 05/23/2024 11:31 AM EDT Encounter for screening examination for sexually transmitted infection from Last 3 Months or Most Recently Relevant to Health Maintenance Results * HIV 1/2 Ag/Ab CMIA Reflex to Confirmation (05/23/2024 11:31 AM EDT) HIV Ag/Ab, 4th Gen NON-REACT MAGALY NON-REACT MAGALY [employer] Comment: HIV-1 antigen and HIV-1/HIV-2 antibodies were not detected. There is no laboratory evidence of HIV infection. PLEASE NOTE: This information has been disclosed to you from records whose confidentiality may be protected by state law. ??If your state requires such protection, then the state law prohibits you from making any further disclosure of the information without the specific written consent of the person to whom it pertains, or as otherwise permitted by law. A general authorization for the release of medical or other information is NOT sufficient for this purpose. ?? For additional information please refer to http://education.[employer]Now/faq/HSE340 (This link is being provided for informational/ educational purposes only.) The performance of this assay has not been clinically validated in patients less than 2 years old. Blood Blood specimen / Unknown 05/23/2024 11:31 AM EDT 05/23/2024 11:33 AM EDT Dagmar Baldwin PA-C LAB BLOOD ORDERA [facility] [email or web address] [address] [place] [phone] from Last 3 Months or Most Recently Relevant to Health Maintenance Care Teams Numberer And Wirer Relationship Specialty Start Date End Date Pcp, No PCP - General General Medicine 05/22/24
--- OUTSIDE RECORDS SUMMARY | 2024-11-16 11:12 | XMS_ITS | Encounter Summary ---
Author Organization [employer] Address [address] [facility] [address] [place] [address] Care Team Providers Care Agriculture Laborer Name Role Phone Monique Patel Primary Care Provider [phone] Encounter Details Date Type Department Care Team (Latest Contact Info) Description 09/04/2021 Abstract [facility] CONVERSIONS Dental, Provider, DDS Social History [...] on filedocumented in this encounter Care Teams Agriculture Laborer Relationship Specialty Start Date End Date Monique Patel ANP [address] [place] [phone] PCP - General Family Medicine 08/13/20 documented as of this encounter
--- OUTSIDE RECORDS SUMMARY | 2024-11-16 11:12 | XMS_ITS | Encounter Summary ---
Author Organization [employer] Address [address] [facility] [address] [place] [address] Care Team Providers Care Over The Horizon Targeting Supervisor Name Role Phone Monique Patel Primary Care Provider [phone] Encounter Details Date Type Department Care Team (Latest Contact Info) Description 11/16/2018 Abstract [facility] CONVERSIONS Dental, Provider, DDS Social History Tobacco [...] on filedocumented in this encounter Care Teams [employer] Targeting Supervisor Relationship Specialty Start Date End Date Monique Patel ANP [address] [place] [phone] PCP - General Family Medicine 08/13/20 documented as of this encounter
== END 2024-11-16 10:45 | disposition home or self-care (01) ==
PROVIDERS: Emergency Provider Emergency Medicine
DX: J10.1 Influenza due to other identified influenza virus with other respiratory manifestations (principal); R50.9 Fever, unspecified; R05.9 Cough, unspecified; Z03.818 Encounter for observation for suspected exposure to other biological agents ruled out
CPT/HCPCS: 0241U; 71046; 99282; 99283

== ENCOUNTER → 2024-11-16 08:16 | Outpatient (BNV) | payer OTHER, SELFPAY | PROVIDERS: Visit Provider Radiology Diagnostic Radiology | DX: R05.9 Cough, unspecified (principal) | CPT/HCPCS: 71046 ==